=== PATIENT | male | born 1995 | race Asian ===

== ENCOUNTER 2019-04-12 11:56 | Inpatient (IN) | payer BC ==
[~2019-04-12 11:56] MED LIST: Ketorolac Tromethamine 30 MG/ML VIAL ONE; Lidocaine 1% PF 5 ML VIAL ONE; Ondansetron PF 4 MG/2 ML Vial ONE; PROPOFOL 200 MG/20 ML VIAL ONE; Succinylcholine Chloride 20 MG/ML 10 ml SYRINGE FS ONE
[2019-04-12] MEDS ORDERED: Morphine 4 MG/ML VIAL ONE (12:16)
[2019-04-12] MEDS ORDERED: Ondansetron PF 4 MG/2 ML Vial ONE (12:17)
[2019-04-12] MEDS ORDERED: Adacel (T-DAP) 0.5 ML SYRINGE ONE (12:17)
[2019-04-12] MEDS ORDERED: Ketamine 50 MG/ML (10ML VIAL) ONE (12:35)
[2019-04-12 12:52] LABS: #Basophils 0.1 thou/uL (0.0-0.2); #Eosinphils 0.1 thou/uL (0.0-0.7); #Lymphocytes 1.7 thou/uL (1.20-3.40); #Monocytes 1.1 thou/uL (0.11-0.59); #Neutrophils 11.6 thou/uL (1.40-6.50); %Basophils 0.4 % (0.0-1.0); %Eosinophils 0.4 % (0.0-10.0); %Lymphocytes 11.9 % (21.0-51.0); %Monocytes 7.4 % (0.0-10.0); %Neutrophils 79.8 % (42.0-75.0); Hemoglobin 17.1 g/dL (14.0-18.0); Mean Corpuscular HGB CONC 33.6 g/dL (32.0-36.0); Mean Corpuscular Hemoglobin 30.6 pg (27.0-31.0); Platelet Count 235 thou/uL (130-400); RBC Distribution Width 11.3 % (11.5-14.5); Red Blood Cell (RBC) Count 5.58 mill/uL (4.70-6.10); White Blood Cell (WBC) Count 14.6 thou/uL (4.8-10.8)
[2019-04-12 13:11] LABS: Anion Gap 13 mmol/L (10-20); BUN (Urea Nitrogen) 17 mg/dL (8.9-20.6); Calc. Creatinine Clearance 0 mL/min (70-130); Calcium 9.4 mg/dL (7.8-10.44); Carbon Dioxide 25 mmol/L (22-29); Chloride 106 mmol/L (98-107); Estimated GFR-MDRD 77; Glucose 109 mg/dL (70-105); Potassium 3.8 mmol/L (3.5-5.1); Sodium 140 mmol/L (136-145)
[2019-04-12] MEDS ORDERED: Bupivacaine HCl 0.5%/Epinephrine 1:200,000/PF 30 ml Vial ONE (13:26)
[2019-04-12] MEDS ORDERED: Promethazine HCl 25 MG/ML VIAL IM PRN (13:32)
[2019-04-12] MEDS ORDERED: Ondansetron PF 4 MG/2 ML Vial IVP PRN (13:32)
[2019-04-12] MEDS ORDERED: hydrALAZINE 20 MG/ML VIAL SLOW IVP PRN (13:32)
[2019-04-12] MEDS ORDERED: HumaLOG 300 UNITS/3 ML VIAL SC PRN (13:32)
[2019-04-12] MEDS ORDERED: Dextrose 50% Abboject 50 ML SYRINGE SLOW IVP PRN (13:32)
[2019-04-12] MEDS ORDERED: Dextrose 5% in Water 1,000 ML IV PRN (13:32)
[2019-04-12] MEDS ORDERED: Cyclobenzaprine 10 MG TAB PO PRN (13:35)
[2019-04-12] MEDS ORDERED: traMADol HCl 50 MG TAB PO PRN (13:35)
[2019-04-12] MEDS ORDERED: Fentanyl 100 MCG/2 ML VIAL ONE ×2 (13:59→14:03)
[2019-04-12] MEDS ORDERED: Midazolam HCl 2 mg/2 ml Vial ONE (14:03)
--- NOTE | 2019-04-12 14:29 | RAD ---
XR Forearm Rt 2 View STANDARD: 04/12/2019 12:13 PM CLINICAL INDICATION: Fall with injury COMPARISON: None. FINDINGS: Fracture:Displaced proximal radial diaphyseal fracture with apex anterior angulation and approximatel y one half shaft width medial displacement of major distal fracture fragment. There is a mid diaphyseal fracture of the ulna with apex anterior angulation and approximately one third shaft width radial displacement of major distal fracture fragment. There is soft tissue prominence. IMPRESSION: Mid diaphyseal fractures of radius and ulna, as above.
--- NOTE | 2019-04-12 14:56 | RAD ---
Exam: XR Forearm Rt 2 View STANDARD HISTORY: Post reduction. Fracture. COMPARISON: 04/12/2019 at 1211 hours. FINDINGS: Previously noted transverse fractures involving the midportion right ulna and proximal diaphysis of t he right radius are again noted. There has been interval improvement in angulation of the fracture fragments. There is slight overriding of the fracture fragments involving the mid diaphysis of the ul na fracture on the current study. The proximal fracture fragment of the fracture involving the proximal diaphysis of the radius is displaced dorsally by one full shaft width and also displaced lat erally. No other interval change. Overlying splint material is now present. IMPRESSION: Improved alignment of fractures involving the diaphysis of the radius and ulna. There is persistent m ild displacement and separation of fracture fragments, but the severe degrees of angulation of the fracture fragments have improved.
--- NOTE | 2019-04-12 15:20 | CON ---
DATE OF CONSULTATION: 04/12/2019 REASON FOR CONSULTATION: Right forearm injury. HISTORY OF PRESENT ILLNESS: Mr. Mayer is a 24-year-old male. He is right-hand dominant. He is from [facility], presents after a fall playing basketball the day on 04/12/2019. No preceding pain. No previous history of injury. No previous history of surgery. His right upper extremity pain is currently rated at 4/10. The patient denies numbness or tingling. PAST MEDICAL HISTORY: None. PAST SURGICAL HISTORY: None. ALLERGIES: NO KNOWN DRUG ALLERGIES. CURRENT MEDICATIONS: None. SOCIAL HISTORY: Denies alcohol, tobacco, or drug use. 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 REVIEW OF SYSTEMS: Noncontributory. PHYSICAL EXAMINATION: VITAL SIGNS: Blood pressure 127/79, pulse 95, respiratory rate 12, pain 4/10, oxygen saturation 95% on room air. GENERAL: Alert and oriented male, in no acute distress, resting comfortably in bed. EXTREMITIES: Splint clean, dry, and intact. Per report, the patient has open wound on the volar aspect of his forearm. He has sensation intact to the median, ulnar, and radial distributions. He will flex and extend his fingers and thumb. His wrist extension intact. Brisk cap refill. Soft compartments. IMAGING STUDIES: The patient's radiographs show a both-bone forearm fracture proximal third radial shaft and a midshaft ulnar shaft fracture. IMPRESSION: Open both-bone forearm fracture, ulnar shaft, proximal third radial shaft, right forearm. ASSESSMENT AND PLAN: The patient will be taken to the OR for an open reduction and internal fixation of his both-bone forearm fracture. The plan will be to repeat the patient with plate and screws on both bones volar Corky approach and dorsal plate, ulnar border approach for his radius. I have discussed with the patient risks and benefits surgery to include pain, scar, bleeding, infection, damage to vital structures, decreased range of motion and strength, need for further surgeries, damage to nerves, arteries, tendons, wrist drop, blood clots, loss of life or limb. The patient understands these risks and benefits, understands we performed an irrigation and debridement open fracture with open reduction and internal fixation with his ulnar shaft and radial shaft fractures. The patient will be consented to take the OR, put to sleep per Anesthesia. Job ID: [id number]
--- NOTE | 2019-04-12 16:27 | RAD ---
RIGHT FOREARM: 04/12/19 Five fluoroscopic views from the OR presented. INDICATIONS: Right forearm open reduction internal fixation. FINDINGS/IMPRESSION: These fluoroscopic films show plates and screws transfixing radius and ulna. POS: LOPEZ
--- NOTE | 2019-04-12 17:48 | OP ---
DATE OF PROCEDURE: 04/12/2019 PREOPERATIVE DIAGNOSIS: Grade 1 open both-bone forearm fracture. POSTOPERATIVE DIAGNOSIS: Grade 1 open both-bone forearm fracture. PROCEDURES PERFORMED: 1. Irrigation and debridement of open fracture. 2. Open reduction and internal fixation of right both-bone forearm fracture. 3. Sugar-tong splint. PROCUREMENT CLERK: Chela Ceballos. ANESTHESIA: The patient received general endotracheal intubation with 20 mL of Marcaine 0.5% with epinephrine. ESTIMATED BLOOD LOSS: 100 mL. TOURNIQUET TIME: 124 minutes at 250 mmHg. ANTIBIOTICS: Ancef 2 g. IMPLANTS: Synthes 7-hole Combi plate and 8-hole Combi plate with 12 cortical screws. COMPLICATIONS: None. HISTORY OF PRESENT ILLNESS: Mr. Mayer is a 24-year-old male who is status post fall and is injured on the basketball court. The patient has no history of surgery and no injuries. The patient's right arm was swollen, had a small open wound on the ulnar aspect. The patient had a splint in the ER. I discussed the risks and benefits of open reduction and internal fixation of right both-bone forearm fracture to include pain, scar, bleeding, infection, damage to vital structures, decreased range of motion and strength, compartment syndrome, damage to posterior interosseous nerve, loss of life or limb. The patient understood the risks and benefits and elected to proceed. DESCRIPTION OF PROCEDURE: Time-out was performed designating the patient's right upper extremity as the operative site based on site, consents, and marking. After time-out, the patient's right upper extremity was prepped and draped in sterile fashion. Tourniquet was brought up and left for 124 minutes. I first started by taking about a 5-mm incision, making oblique lines to wash out. The fracture came through and tracking down to the site. We then came down the ulnar border, came down through the ulnar fascia to get the FCU volarly and the ECU posteriorly. We bluntly dissected to expose the ulna. We used an 8-hole plate to clamp across and place 3 screws distally and 3 screws proximally to clamp and reduce the fracture in position. We curetted and cleaned out the fracture fragment and cleaned out and washed 2 L of fluid through the ulnar fracture fragment, curretting bone, skin, soft tissue through the opening hole before closed reduction and internal fixation of both sides. We took pictures to ensure nice reduction, washed and moved to the radius. We did a volar approach of Corky, came down from the biceps toward the radial tuberosity down through skin, found the patient's brachioradialis and pronator, it came in between that interval, not distinguished, we found the radial artery, but we were able to find the superficial branch of the radial nerve, which we used as we were able to find and saw the branch. We followed the pronator down to its insertion, worked back toward our fracture fragments, blunt dissected to ensure that the leash was released. We came down on the distal fragment and elevated the pronator off. We then worked pronator muscle on that side, which is a portion of superficialis. We then cleaned and held out to clear out any additional fracture. We worked on the proximal radial section using from medial ulnar to lateral radial, taken down over to supinator, bluntly dissecting with the Collado, moved through the leash of Corky, ensured that we could see the biceps, keeping the patient supinated, ensured we were on there. We ensured that it was good. The distal tip was completely clean. Therefore, we put any clamps to compress the bone down. Posterior interosseous nerve was clamped in, reduced the fracture with 7-hole plate, we put 1 screw proximally and distally, had a good overall reduction. We then placed 2 more proximally and 2 more distally. We took final pictures, showing good reduction and overall alignment. We washed. We did not have a fascial plane and closed the subcu with 2-0 and 3-0 nylon. We then closed the trauma stitch with 3-0 nylon for the trauma incision. We then went to the ulnar aspect of the forearm, which we closed the fascia with 0 Vicryl, 2-0 and 3-0 nylon. The patient was placed in a sugar-tong splint. The patient will be admitted overnight for 24 hours antibiotics, to be discharged home with pain medications, follow up in house. Job ID: [id number] [facility]
--- NOTE | 2019-04-12 18:48 | HP ---
HISTORY OF PRESENT ILLNESS: Mr. Mayer is a 24-year-old male. He is coming to the ER after an injury on his upper right forearm while playing basketball early today. Upon arrival in the ER, the patient is alert and awake, GCS 15, vital signs are stable. Complains of pain of the right upper arm. The patient denied numbness or tingling of the right hand. PAST MEDICAL HISTORY: None. PAST SURGICAL HISTORY: None. ALLERGIES: NO KNOW ALLERGIES. CURRENT MEDICATIONS: None. SOCIAL HISTORY: The patient denied alcohol. Deny smoking history. Denies drug use. 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 REVIEW OF SYSTEMS: Noncontributory. PHYSICAL EXAMINATION: GENERAL: The patient is lying down in bed with no acute distress. VITAL SIGNS: Blood pressure 120/70, heart rate 95, respiratory rate 12. Pain is 4/10. O2 saturation is 95 on room air. GENERAL: The patient is alert and awake. GCS 15. HEENT: Atraumatic. No bruising. Pupils 3 mm, equal bilaterally, reactive to light bilaterally. NECK: Trachea midline. No bruising. No tenderness to palpation. CHEST: No tenderness to palpation. No bruising. Chest expansion equal bilaterally. LUNGS: Clear bilaterally. HEART: Regular rate and rhythm. ABDOMEN: Soft and nondistended. EXTREMITIES: Right arm splint is clean, clear, dry, intact. Right finger sensation intact and the patient can wiggle his fingers. Lower extremities, neurovascularly intact x2. Upper extremities, neurovascularly intact. IMAGING: Showed right forearm fracture. IMPRESSION: Open radial and ulnar shaft fracture of the right side. PLAN: The patient will be taken to OR for open reduction and internal fixation with Dr. Lo right before this dictation. The patient is put on pain control. After the OR, the patient will be followed up in [place]-[facility] surgical floor with pain control, DVT prophylaxis. Anticipate staying for a few days for IV antibiotics. Job ID: [id number] [facility]
[2019-04-12] MEDS: Ibuprofen 600 MG TAB PO SCH ×3 (19:21→23:30)
[2019-04-12] MEDS: Acetaminophen 500 MG TAB PO SCH ×2 (19:21→20:29)
[2019-04-12] MEDS: Sodium Chloride 0.9% 1,000 ML IV SCH ×2 (19:21→23:41)
[2019-04-12] MEDS: traMADol HCl 50 MG TAB PO SCH ×3 (19:22→23:30)
[2019-04-12] MEDS: CEFAZOLIN 2 GM in Premix Bag 1 BAG IVPB SCH (20:31)
[2019-04-12] MEDS ORDERED: Famotidine/PF 20 mg/2ml Vial SLOW IVP SCH (21:00)
[2019-04-12 21:13] VITALS: BMI 24.4
[2019-04-13] MEDS: Acetaminophen 500 MG TAB PO SCH ×3 (01:40→12:08)
[2019-04-13] MEDS: CEFAZOLIN 2 GM in Premix Bag 1 BAG IVPB SCH (05:04)
[2019-04-13] MEDS: Ibuprofen 600 MG TAB PO SCH ×2 (05:06→12:06)
[2019-04-13] MEDS: traMADol HCl 50 MG TAB PO SCH ×2 (05:06→12:06)
[2019-04-13] MEDS: Sodium Chloride 0.9% 1,000 ML IV SCH (09:19)
[2019-04-13 12:16] VITALS: BP 114/66; TEMP 97.9
--- NOTE | 2019-04-14 14:05 | DIS ---
DATE OF ADMISSION: 04/12/2019 DATE OF DISCHARGE: 04/13/2019 ADMISSION DIAGNOSES: 1. Status post injury after playing basketball. 2. Open right radial and ulnar shaft fracture. DISCHARGE DIAGNOSES: 1. Status post injury during playing basketball. 2. Open radial and ulnar shaft fracture, status post open reduction and internal fixation of right radial and ulnar shaft fracture. CONSULTING PHYSICIAN: Dr. Teresita Smith. PROCEDURE: Open reduction and internal fixation of open right radial and ulnar shaft fracture. HOSPITAL COURSE: Mr. Mayer is a 24-year-old male, who came into the ER after injury playing basketball. He sustained right forearm open fracture. He underwent ORIF of open right forearm fracture with Dr. Lo right after coming to the ER. The patient was having antibiotic IV since coming into ER. Postop, the patient is doing good. Pain is well controlled. Vitals postop have been stable. He has tolerated regular diet. He developed no fever or shortness of breath. Neurovascular of the right hand is intact. PHYSICAL EXAMINATION: GENERAL: The patient is lying in bed, comfortable, with no acute distress. VITAL SIGNS: Temperature 97.9, heart rate 84, respiratory rate 18, O2 saturation 97% on room air, and blood pressure 114/66. LUNGS: Clear bilaterally. HEART: Regular rate and rhythm. ABDOMEN: Soft, nondistended. EXTREMITIES: Right arm splint is clean, dry, intact. Neurovascularly intact of the right finger. NEUROLOGIC: No focal neurology deficits. DISCHARGE DISPOSITION: Home. DISCHARGE CONDITION: Good. DISCHARGE INSTRUCTIONS: The patient is to take medication as directed. The patient is to exercise with his right hand. The patient is to see Dr. Lo in 2 weeks. DISCHARGE MEDICATIONS: Ibuprofen, Tylenol, tramadol, Flexeril. Job ID: [id number]
--- NOTE | 2019-04-14 16:06 | EKG ---
Test Reason : Blood Pressure : / mmHG Vent. Rate : 091 BPM Atrial Rate : 091 BPM P-R Int : 196 ms QRS Dur : 108 ms QT Int : 372 ms P-R-T Axes : 082 090 054 degrees QTc Int : 457 ms Normal sinus rhythm Biatrial enlargement Rightward axis ST elevation, consider early repolarization Abnormal ECG No previous ECGs available Confirmed by TAYLOR SANTIAGO, DR. Renteria ([id number]) on 04/14/2019 4:06:10 PM Referred By: SARTHAK Confirmed By:DR. Dexter VAZQUEZ MD
== END 2019-04-13 16:05 | disposition home or self-care (01) | DRG 512 ==
LOC: ERS 11:56 → SDC 14:11 → SURG A 17:37
PROVIDERS: ADMIT Surgery; ATTEND Surgery
PROC: 0PSK04Z Reposition Right Ulna with Internal Fixation Device, Open Approach (ICD-10-PCS; principal; 2019-04-12)
PROC: 0PSH04Z Reposition Right Radius with Internal Fixation Device, Open Approach (ICD-10-PCS; 2019-04-12)
DX: S52.201B Unspecified fracture of shaft of right ulna, initial encounter for open fracture type I or II (principal); S52.301B Unspecified fracture of shaft of right radius, initial encounter for open fracture type I or II; W18.39XA Other fall on same level, initial encounter; Y93.67 Activity, basketball; Y92.310 Basketball court as the place of occurrence of the external cause
CPT/HCPCS: 25565; 36415; 76000; 80048; 85025; 90471; 90715; 93005; 93010; 96365; 96375; 99152; 99153; C1713; G0390; J0670; J0690; J1885; J2001; J2250; J2270; J2405; J2704; J3010; S0028